=== PATIENT | male | born 1985 | race African-American/Black ===

== ENCOUNTER 2023-06-18 19:54 | Emergency (ER) | payer BC ==
[~2023-06-18] VITALS: Ht 170.2 cm; Wt 96.0 kg
[2023-06-18 20:02] VITALS: BP 150/95; PULSE 108; RESP 18; TEMP 98.2; O2SAT 97
[2023-06-19] MEDS ORDERED: IBUP-1525 MT (02:07)
[2023-06-19] MEDS ORDERED: TOPUD MT (02:07)
[2023-06-19] MEDS ORDERED: AMOX600S39 MT (02:07)
== END 2023-06-19 03:38 | disposition home or self-care (01) ==
LOC: ER 20:11
DX: S01.511A Laceration without foreign body of lip, initial encounter (principal); W54.0XXA Bitten by dog, initial encounter; Y93.89 Activity, other specified; Y92.89 Other specified places as the place of occurrence of the external cause; Y99.8 Other external cause status
CPT/HCPCS: 12015; 99283